=== PATIENT | female | born 2000 | race Caucasian/White ===

== ENCOUNTER 2024-12-26 10:00 | Outpatient (CLI) | payer BC, SELFPAY ==
--- NOTE | 2024-12-26 10:15 | CRLHL7_ITS ---
For Patients: As a result of the Cures Act, medical imaging exams and procedure reports are released immediately into your electronic medical record. You may view this report before your referring provider. If you have questions, please contact your health care provider. OB ULTRASOUND INDICATION: Dating and viability. TECHNIQUE: Real time grayscale imaging of the fetus was performed. Transvaginal. Transvaginal imaging performed to better demonstrate the endometrium and ovaries. LMP: 10/27/2024. CHAN by LMP: 08/04/2025. GA: 8 w, 3 d. CRL: 2 cm. 8 w 4 d. CHAN: 08/03/2025. FHR: 178 BPM. Gestational sac: 2.9 cm. Appears within normal limits. Yolk sac: 3 mm. Appears within normal limits. Right ovary: Within normal limits. 3.5 x 1.9 x 2 cm. CL 1.6 x 1.4 x 1.6 cm. Left ovary: N/V due to bowel and gas. IMPRESSION: 1. Single living intrauterine measuring 8 weeks 4 days with sonographic due date 08/03/2025. 2. There are two subchorionic hemorrhages measuring 1.8 x 2.0 x 2.1 cm in the right superior uterus and 1.5 x 2.0 x 1.7 cm in the left superior uterus. Carlos Sweet M.D. Diagnostic Radiologist [email or web address] MAX/thi ness/Dictated by: Carlos Sweet MD @ 12/26/2024 11:22:00 AM (Electronically Signed)
== END 2024-12-26 10:01 | disposition home or self-care (01) ==
LOC: US 10:03
PROVIDERS: PCP Physician Assistant; Visit Provider Physician Assistant
DX: Z34.91 Encounter for supervision of normal pregnancy, unspecified, first trimester (principal); O20.9 Hemorrhage in early pregnancy, unspecified; Z3A.08 8 weeks gestation of pregnancy
CPT/HCPCS: 76817

== ENCOUNTER 2024-12-26 11:22 | Outpatient (CLI) | payer BC, SELFPAY ==
[2024-12-26 15:02] LABS: Chlamydia DNA Amplified* NOT DETECTED (No Detected); GC DNA Amplified* NOT DETECTED (No Detected)
== END 2024-12-26 11:23 | disposition home or self-care (01) ==
PROVIDERS: PCP Physician Assistant; Visit Provider Physician Assistant
DX: Z34.91 Encounter for supervision of normal pregnancy, unspecified, first trimester (principal); Z3A.08 8 weeks gestation of pregnancy
CPT/HCPCS: 83020; 83021; 85660; 86592; 86703; 86704; 86706; 86762; 86787; 86803; 86850; 86900; 86901; 87086; 87340; 87491; 87591

== ENCOUNTER 2025-03-20 11:33 | Outpatient (CLI) | payer BC, SELFPAY ==
--- NOTE | 2025-03-20 12:15 | CRLHL7_ITS ---
For Patients: As a result of the Century Cures Act, medical imaging exams and procedure reports are released immediately into your electronic medical record. You may view this report before your referring provider. If you have questions, please contact your health care provider. OB ULTRASOUND SURVEY LMP: 10/25/2024. CHAN by LMP: 08/01/2025. GA: 20 w, 6 d. INDICATION: anatomy. TECHNIQUE: Real time grayscale imaging of the fetus was performed. Evaluate anatomy. Transvaginal imaging performed. Transvaginal imaging performed to further evaluate the endometrium and ovaries. position: Breech. Cervix: Visualized. Technique: Transvaginal. Length of closed cervix: 3.4 cm. Placenta/cord: Anterior. Technique: Transvaginal. Placenta tip to internal OS: 2.2 cm. Umbilical Cord: 3-vessel cord. Placenta insertion: Central. Amniotic Fluid: 3.9 cm SDP (greater than/equal to: 2- less than 8 cm). SURVEY: Observed Structures. Calvarium/Spine: Cerebellum: 2.3 cm, 22 w 3 d. Cisterna Magna: 3.9 mm. Nuchal Fold: 5.2 mm. Lateral Ventricle: 6.1 mm. CSP: Yes. Midline Falx: Yes. Choroid Plexus: Yes. Spine: Yes. Abdomen: Stomach: Yes. Abd Cord Insertion: Yes. Urinary Bladder: Yes. Kidneys: Yes. Diaphragm: Yes. Face: Nose/lips: Yes. Orbital view: Yes. Profile: Yes. Limbs: Upper Extremities: Yes. Lower Extremities: Yes. Hands: Yes. Feet: Yes. Vascular: 4-Chamber Heart: Yes. LVOT: Yes. RVOT: Yes. 3VV: Yes. 3VTV: Yes. BPD: 4.7 cm. 20 w, 2 d, 26.5%. HC: 18.2 cm. 20 w, 4 d, 30.6%. AC: 17.4 cm. 22 w, 2 d, 86.5%. FL: 3.3 cm. 20 w, 3 d, 26.6%. FL/AC ratio: 19.12%. HC/AC ratio: 1.05. heart rate: 144 bpm. age by this US: 21 w, 1 d. CHAN by this US: 07/30/2025. EFW: 417.55g. Weight: 15 oz. Percentile by CHAN: 72.1%. IMPRESSION: 1. Concordance of clinical and sonographic dating. 2. Normal anatomic survey. Carlos Sweet M.D. Diagnostic Radiologist [email or web address] MAX/thi ness/Dictated by: Carlos Sweet MD @ 03/20/2025 4:24:00 PM (Electronically Signed)
== END 2025-03-20 11:34 | disposition home or self-care (01) ==
LOC: US 11:33
PROVIDERS: PCP Physician Assistant; Visit Provider Physician Assistant
DX: Z34.92 Encounter for supervision of normal pregnancy, unspecified, second trimester (principal); Z3A.20 20 weeks gestation of pregnancy
CPT/HCPCS: 76805; 76817

== ENCOUNTER 2025-05-15 08:54 | Outpatient (CLI) | payer BC, SELFPAY | END 2025-05-15 08:55 | disposition home or self-care (01) | LOC: NFLDREF 05-20 08:35 | PROVIDERS: PCP Physician Assistant; Referring Provider Physician Assistant; Visit Provider Obstetrics & Gynecology | DX: Z34.93 Encounter for supervision of normal pregnancy, unspecified, third trimester (principal) | CPT/HCPCS: 86592; 86780 ==